=== PATIENT | male | born 1975 | race Caucasian/White ===

== ENCOUNTER 2017-07-05 13:50 | Emergency (ER) | payer MEDICAID ==
[~2017-07-05] VITALS: Ht 175.3 cm; Wt 98.9 kg
[2017-07-05 15:55] VITALS: BP 129/79
== END 2017-07-05 15:55 | disposition home or self-care (01) ==
LOC: ED 13:50
DX: H60.502 Unspecified acute noninfective otitis externa, left ear (principal); H91.92 Unspecified hearing loss, left ear; M25.562 Pain in left knee; R49.0 Dysphonia